=== PATIENT | female | born 1955 | race Two or more races ===

== ENCOUNTER 2018-06-21 12:24 | Day surgery (SDC) | payer BC ==
[2018-06-21] MEDS ORDERED: LR 1,000 ML IV ONE (12:41)
[2018-06-21] MEDS ORDERED: MIDAZOLAM 2 MG/2 ML VIAL ONE (14:08)
[2018-06-21] MEDS ORDERED: PROPOFOL/EMULSION 500 MG/50 ML BOTTLE IV ONE (14:08)
[2018-06-21] MEDS ORDERED: ePHEDrine SULFATE 25 MG/5 ML SYR ONE (14:20)
--- NOTE | 2018-06-21 15:06 | PDANEPAE ---
ANE History of Present Illness egd ANE Past Medical History - Cardiovascular History Hx Hypertension: No Hx Arrhythmias: No Hx Chest Pain: No Hx Coronary Artery / Peripheral Vascular Disease: No Hx CHF / Valvular Disease: No Hx Palpitations: No - Pulmonary History Hx COPD: No Hx Asthma/Reactive Airway Disease: No Hx Recent Upper Respiratory Infection: No Hx Oxygen in Use at Home: No Hx Sleep Apnea: No Sleep Apnea Screening Result - Last Documented: Negative - Neurologic History Hx Cerebrovascular Accident: No Hx Seizures: No Hx Dementia: No - Endocrine History Hx Diabetes: No Hypothyroid: No Hyperthyroid: No Obesity: no - Renal History Hx Renal Disorders: No - Liver History Hx Hepatic Disorders: No Hepatic History Comment: LIVER POSS CELIAC - Neurological & Psychiatric Hx Hx Neurological and Psychiatric Disorders: No - Cancer History Hx Cancer: No Cancer History Comment: STAGE III ESOPHAGEAL - Congenital Disorder History Hx Congenital Disorders: No - GI History GERD: mild, moderate Hx Gastrointestinal Disorders: No Gastrointestinal History Comment: BEING TESTED FOR POSS CELIAC - Other Health History Other Health History: NEG - Chronic Pain History Chronic Pain: No - Surgical History Prior Surgeries: ESOPHAGECTOMY. EGD SCOPE X3. TUBAL LIGATION ANE Review of Systems Review of Systems: - Exercise capacity Exercise capacity: >=4 METS METS (RN): 5 METS ANE Patient History - Allergies Allergies/Adverse Reactions: No Known Allergies Allergy (Unverified 06/14/18 12:38) - Home Medications Home medications: home medication list seen and reviewed Home Medications: Atorvastatin Calcium 06/14/18 [Last Taken 06/20/18] Herbals/Supplements -Info Only 06/14/18 [Last Taken 1 Week Ago ~06/14/18] Ibuprofen 06/14/18 [Last Taken 1 Month Ago ~05/22/18] Omeprazole 06/14/18 [Last Taken 06/21/18] Ranitidine HCl 06/14/18 [Last Taken 06/20/18] - NPO status NPO Status: no food or drink >8 hours NPO Since - Liquids (Date): 06/21/18 NPO Since - Liquids (Time): 10:30 NPO Since - Solids (Date): 06/20/18 NPO Since - Solids (Time): 20:00 - Anes Hx Anes Hx: no prior problems - Smoking Hx Smoking Status: Former smoker - Family Anes Hx Family Hx Anesthesia Complications: NEG ANE Labs/Vital Signs - Vital Signs Blood Pressure: 90/60 Heart Rate: 57 Respiratory Rate: 14 O2 Sat (%): 98 Height: 154.31 cm Weight: 49.895 kg ANE Physical Exam - Airway Mallampati Score: Class 2 Mouth exam: normal dental/mouth exam - Pulmonary Pulmonary: no respiratory distress - Cardiovascular Cardiovascular: regular rate and rhythym - ASA Status ASA Status: II ANE Anesthesia Plan Anesthesia Plan: GA with mask, MAC
[2018-06-21] MEDS ORDERED: NALOXONE HCL 0.4 MG/ML INJ IVP PRN (15:32)
[2018-06-21] MEDS ORDERED: ALBUTEROL 3 ML DEYVIAL IH PRN (15:32)
[2018-06-21] MEDS ORDERED: ACETAMINOPHEN 500 MG TAB PO PRN (15:32)
[2018-06-21] MEDS ORDERED: fentaNYL 100 MCG/2 ML INJ IVP PRN (15:32)
--- NOTE | 2018-06-21 15:32 | POSTANESTH ---
Post Anesthetic Evaluation Cardiovascular Status: Normal, Stable Respiratory Status: Normal, Stable Level of Consciousness/Mental Status: Can Participate in Eval, Mildly Sleepy, Arousable Pain Control: Adequate, Prn Tx Ordered Nausea/Vomiting Control: Adequate, Prn Tx Ordered
[2018-06-21] MEDS ORDERED: INDOMETHACIN 50 MG SUPP PR PRN (15:37)
--- NOTE | 2018-06-21 15:37 | PDGENHP ---
History & Physical Chief Complaint: abnl blood work, gerd History of Present Illness: 63 year old female presents for evaluation of GERD, abnl blood work Pertinent Past, Social, Family History: PMHx: esopahgectomy, GERD Relevant Physical Exam: HEENT: anicteric. CV: RRR +s1s2. Lungs: CTAB. Abd: soft, nt, + bs Cardiorespiratory Assessment: ASA 2
[2018-06-21] MEDS ORDERED: NS 500 ML IV SCH (15:45)
--- NOTE | 2018-06-21 16:00 | GIREPORT ---
[facility] Surgical Services - Endoscopy Department Patient Name: Khloe Parr Procedure Date: 06/21/2018 2:48 PM Patient Type: Outpatient Attending MD/ ER Physician: Luis Fernando August MD Procedure: Upper GI endoscopy Indications: Heartburn, Abnormal transglutaminase test, Family history of esophageal cancer Patient Profile: 63 year old female with a history of esopahgeal cancer s/p resection presents for evaluation of heartburn as well as abnormal blood work (ce liac disease) Providers: Luis Fernando August MD Medicines: Monitored Anesthesia Care Complications: No immediate complications. Estimated blood loss: Minimal. Description of Procedure: After obtaining informed consent, the endoscope was passed under direct vision. Throughout the procedure, the patient's blood pressure, pulse, and oxygen saturations were monitored continuously. The Endoscope was intro duced through the mouth, and advanced to the second part of duodenum. The [facility] er GI endoscopy was accomplished without difficulty. The patient tolerated th e procedure well. Findings: Mucosal changes were found at the esophageal anastomosis with a mild no dular appearance. Biopsies were taken with a cold forceps for histology. A hiatal hernia was present. The examined duodenum was normal. Biopsies for histology were taken wit h a cold forceps for evaluation of celiac disease. Estimated Blood Loss: Estimated blood loss was minimal. Post Op Diagnosis: - Mucosal changes in the esophagus. Biopsied. - Hiatal hernia. - Normal examined duodenum. Biopsied. Recommendation: - Discharge patient to home (with escort). - Resume previous diet. - Continue present medications. - Await pathology results. - Use a proton pump inhibitor PO daily. - Follow an antireflux regimen. - Thank you for allowing me to participate in the care of your patient. Attending Participation: I personally performed the entire procedure. Luis Fernando August MD Luis Fernando August MD 06/21/2018 4:00:22 PM This report has been signed electronicallyLuis Fernando August MD Number of Addenda: 0 Note Initiated On: 06/21/2018 2:48 PM [email or web address]
[2018-06-21 17:49] VITALS: BP 125/75
== END 2018-06-21 17:33 | disposition home or self-care (01) ==
LOC: FSGY 12:24
PROVIDERS: ATTEND Internal Medicine Gastroenterology
PROC: 0DB58ZX Excision of Esophagus, Via Natural or Artificial Opening Endoscopic, Diagnostic (ICD-10-PCS; principal; 2018-06-21 14:00)
DX: K21.9 Gastro-esophageal reflux disease without esophagitis (principal); R79.9 Abnormal finding of blood chemistry, unspecified; K44.9 Diaphragmatic hernia without obstruction or gangrene; Z85.01 Personal history of malignant neoplasm of esophagus; Z87.891 Personal history of nicotine dependence; Z90.49 Acquired absence of other specified parts of digestive tract
CPT/HCPCS: J2250; J2704